=== PATIENT | female | born 1950 | race Caucasian/White ===

== ENCOUNTER 2019-01-22 11:38 | Emergency (ER) | payer OTHER ==
[2019-01-22 11:47] VITALS: BP 149/72; PULSE 100; TEMP 98.6; BMI 32.3
[2019-01-22] MEDS ORDERED: KETOROLAC TROMETHAMINE 30 MG/1 ML VIAL IM ONE (13:01)
[2019-01-22] MEDS ORDERED: KETOROLAC TROMETHAMINE 30 MG/1 ML VIAL ONE (13:08)
--- NOTE | 2019-01-22 13:08 | PDOC ---
History of Present Illness - General Chief Complaint: Pain, Acute Stated Complaint: RT KNEE SWOLLEN Time Seen by Provider: 01/22/19 11:54 History Source: Patient Exam Limitations: Clinical Condition - History of Present Illness Initial Comments: 01/22/19 13:13 Patient with no significant past medical history present with complaint of 4 day history of right knee swelling and pain status post shoveling snow 6 days ago. Patient denies any trauma to knee or injury to knee. 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 Patient has been taking Aleve for pain with minimal improvement and using walker and knee brace for ambulation. Timing/Duration: other (4 days) Past History - Past Medical History Allergies/Adverse Reactions: Allergies Allergy/AdvReac Type Severity Reaction Status Date / Time No Known Allergies Allergy Verified 01/22/19 11:42 Home Medications: Ambulatory Orders Naproxen 500 mg PO BID PRN #20 tablet 01/22/19 COPD: No Diabetes: Yes HTN: Yes Hypercholesterolemia: Yes - Surgical History Cholecystectomy: Yes - Immunization History Immunization Up to Date: Yes - Suicide/Smoking/Psychosocial Hx Smoking History: Never smoked Review of Systems - Review of Systems Able to Perform ROS?: Yes Is the patient limited Tajik proficient: No Constitutional: No: Weakness HEENTM: No: Symptoms Reported Respiratory: No: Symptoms reported Cardiac (ROS): No: Symptoms Reported Musculoskeletal: Yes: See HPI, Joint Pain (right knee), Joint Swelling (right knee), Muscle Pain (right knee). No: Muscle Weakness Integumentary: No: Change in Color, Erythema Neurological: No: Numbness, Paresthesia, Tingling All Other Systems: Reviewed and Negative *Physical Exam - Vital Signs Last Vital Signs Temp Pulse Resp BP Pulse Ox 98.6 F 100 H 18 149/72 97 01/22/19 11:42 01/22/19 11:42 01/22/19 11:42 01/22/19 11:42 01/22/19 11:42 - Physical Exam Comments: 01/22/19 13:15 GENERAL: Well developed, well nourished. Awake and alert. No acute distress. CARDIOVASCULAR: Regular rate and rhythm. No murmurs, rubs, or gallops. PULMONARY: No evidence of respiratory distress. Lungs clear to auscultation bilaterally. No wheezing, rales or rhonchi. MUSCULOSKELETAL : Moderate tenderness to anterior patellar with moderate joint effusion to medial and lateral collateral ligament of right knee. Negative anterior-posterior drawer tests of right knee. No knee instability on exam. No bony deformities EXTREMITIES: No cyanosis. No clubbing.No calf tenderness. SKIN: Warm and dry. Normal capillary refill. No rashes. No jaundice. NEUROLOGICAL: Alert, awake, appropriate. No motor deficits in the lower extremities. PSYCHIATRIC: Cooperative. Good eye contact. Appropriate mood and affect. General Appearance: Yes: Nourished, Appropriately Dressed, Mild Distress Moderate Sedation - Procedure Monitoring Vital Signs: Procedure Monitoring Vital Signs Temperature 98.6 F 01/22/19 11:42 Pulse Rate 100 H 01/22/19 11:42 Respiratory Rate 18 01/22/19 11:42 Blood Pressure 149/72 01/22/19 11:42 O2 Sat by Pulse Oximetry (%) 97 01/22/19 11:42 ED Treatment Course - RADIOLOGY Radiology Studies Ordered: Category Date Time Status KNEE 3 POS-RIGHT [RAD] Stat Radiology 01/22/19 12:12 Ordered Medical Decision Making - Medical Decision Making 01/22/19 13:16 Patient with no significant past medical history present with complaint of 4 day history of right knee swelling and pain 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 Exam significant for moderate joint swelling of right knee with tenderness to anterior patellar. No erythema or increased warmth right knee subjective of infectious process. Symptoms likely knee sprain with joint effusion from sprain. Free range of motion of right knee with negative anterior-posterior drawer test. No open wound to knee. X-ray of right knee shows no acute pathology except moderate soft tissue swelling. Toradol 30 mg IM given for pain. Patient stable for discharge to continue NSAIDs as needed for pain with advised elevated right knee and use knee brace onto orthopedist follow-up. Referral to orthopedics given to patient for follow- up. *DC/Admit/Observation/Transfer Diagnosis at time of Disposition: Effusion, right knee Right knee sprain Qualifiers: Encounter type: initial encounter Involved ligament of knee: unspecified ligament Qualified Code(s): S83.91XA - Sprain of unspecified site of right knee , initial encounter - Discharge Dispostion Disposition: HOME Condition at time of disposition: Stable Decision to Admit order: No - Prescriptions Prescriptions: Naproxen 500 mg PO BID PRN #20 tablet PRN Reason: knee pain - Referrals Referrals: James Hines DO [Staff Physician] - - Patient Instructions Printed Discharge Instructions: DI for Knee Effusion Additional Instructions: Keep right knee elevated and use home knee brace to help support knee. Call orthopedics office today for follow-up appointment possible tomorrow for possible knee aspiration. Take prescribed medication as needed for pain and apply hot compresses to knee 2-3 times a day for 5-10 minutes as needed. - Post Discharge Activity
== END 2019-01-22 13:17 | disposition home or self-care (01) ==
LOC: JERFT 11:38
PROC: 3E0233Z Introduction of Anti-inflammatory into Muscle, Percutaneous Approach (ICD-10-PCS; principal; 2019-01-22)
DX: S83.8X1A Sprain of other specified parts of right knee, initial encounter (principal); M25.461 Effusion, right knee; X50.0XXA Overexertion from strenuous movement or load, initial encounter; Y93.H1 Activity, digging, shoveling and raking; Y92.79 Other farm location as the place of occurrence of the external cause; Y99.8 Other external cause status; I10 Essential (primary) hypertension; E78.00 Pure hypercholesterolemia, unspecified; E11.9 Type 2 diabetes mellitus without complications
CPT/HCPCS: 73562-TC-RT-FY; 99281-25

== ENCOUNTER 2024-06-09 05:21 | Day surgery (SDC) | payer OTHER ==
[2024-06-08 13:47] VITALS: BMI 31.1
[2024-06-09 08:49] VITALS: TEMP 97.7
[2024-06-09 09:24] VITALS: BP 118/67; PULSE 72; RESP 16
== END 2024-06-09 09:36 | disposition home or self-care (01) ==
LOC: JASU-ENDO 05:21
PROVIDERS: ATTEND Internal Medicine Gastroenterology
PROC: 0DBH8ZX Excision of Cecum, Via Natural or Artificial Opening Endoscopic, Diagnostic (ICD-10-PCS; 2024-06-09)
PROC: 0DBK8ZX Excision of Ascending Colon, Via Natural or Artificial Opening Endoscopic, Diagnostic (ICD-10-PCS; principal; 2024-06-09 08:00)
DX: Z12.11 Encounter for screening for malignant neoplasm of colon (principal); D12.2 Benign neoplasm of ascending colon; K63.5 Polyp of colon; K64.8 Other hemorrhoids; K64.4 Residual hemorrhoidal skin tags; K57.30 Diverticulosis of large intestine without perforation or abscess without bleeding; I10 Essential (primary) hypertension; E11.9 Type 2 diabetes mellitus without complications; Z79.84 Long term (current) use of oral hypoglycemic drugs
CPT/HCPCS: 82962; 88305-TC